=== PATIENT | female | born 1950 | race Caucasian/White ===

== ENCOUNTER 2016-10-16 09:53 | Day surgery (SDC) | payer MEDICARE, OTHER ==
--- NOTE | ~2016-10-16 | EGD ---
EGD REPORT [facility] [address] [place]. [address] NAME: ELLI RODRIGUEZ : [birth year] [place]US : [place] [facility] [place] [id number] AGE: 65 ADM/REG DATE : 10/16/16 MR#: [id number] REPORT SERV DATE: 10/16/16 DICTATED BY: JULIETA BURNETT DATE: 10/16/16 REPORT STATUS : Draft TRANSCRIBED BY: [facility] DATE: 10/16/16 Endoscopy Center Patient Name: Elli Rodriguez Date of : 1950 Attending MD: LISA BURNETT MD Procedure Date No Time: 10/16/2016 Procedure: Upper GI endoscopy Indications: Dysphagia, For therapy of esophageal stenosis Referring MD: NEETU OCASIO MD Medicines: See the Anesthesia note for documentation of the administered medications Complications: No immediate complications. Estimated blood loss: Minimal. Procedure: Pre-Anesthesia Assessment: - ASA Grade Assessment: II - A patient with mild systemic disease. - Prior to the procedure, a History and Physical was performed, and patient medications and allergies were reviewed. The patient's tolerance of previous anesthesia was also reviewed. The risks and benefits of the procedure and the sedation options and risks were discussed with the patient. All questions were answered, and informed consent was obtained. Prior Anticoagulants: The patient has taken no previous anticoagulant or antiplatelet agents. After reviewing the risks and benefits, the patient was deemed in satisfactory condition to undergo the procedure. After obtaining informed consent, the endoscope was passed under direct vision. Throughout the procedure, the patient's blood pressure, pulse, and oxygen saturations were monitored continuously. The GIF H190 [id number] was introduced through the mouth, and advanced to the second part of duodenum. Findings: The examined duodenum was normal. The entire examined stomach was normal. The cardia and gastric fundus were normal on retroflexion. A benign-appearing, intrinsic moderate stenosis was found in the lower third of the esophagus and was traversed. A guidewire was placed and the scope was withdrawn. Dilation was performed with a Savary dilator with no resistance at 42 Fr, mild resistance at 45 Fr and moderate resistance at 48 Fr. Estimated blood loss was minimal. Impression: - Normal examined duodenum. EGD REPORT [address] [address] NAME: ELLI RODRIGUEZ : [birth year] [place] [facility] [id number] AGE: 65 ADM/REG DATE : 10/16/16 MR#: [id number] REPORT SERV DATE: 10/16/16 DICTATED BY: JULIETA BURNETT DATE: 10/16/16 REPORT STATUS : Draft TRANSCRIBED BY: [employer] DATE: 10/16/16 - Normal stomach. - Benign-appearing esophageal stricture. Dilated. Recommendation: - Patient has a contact number available for emergencies. The signs and symptoms of potential delayed complications were discussed with the patient. Return to normal activities tomorrow. Written discharge instructions were provided to the patient. - Regular diet. - Discharge patient to home. - Continue present medications. - Repeat the upper endoscopy PRN for retreatment. Procedure Code(s): --- Professional --- 58842, Esophagogastroduodenoscopy, flexible, transoral; with insertion of guide wire followed by passage of dilator(s) through esophagus over guide wire Diagnosis Code(s): --- Professional --- K22.2, Esophageal obstruction R13.10, Dysphagia, unspecified CPT copyright 2013 [employer]. All rights reserved. The codes documented in this report are preliminary and upon grading supervisor review may be revised to meet current compliance requirements. LISA BURNETT MD 10/16/2016 11:30 AM This report has been signed electronically. Number of Addenda: 0 Note Initiated On: 10/16/2016 11:07 AM Scope Withdrawal Time 0 hours 0 minutes 0 seconds
[~2016-10-16 09:53] MED LIST: AVAPRO300 MG PO; CYANO1000T PO; LEVOTHYROXIN25 MCG PO; MULTIPLE VIT PO; NORV10 PO; NORV5 PO; PREV30 PO; PRILO PO; ZOL50 PO
[2016-12-01] MEDS ORDERED: PREV15 PO (11:21)
[2017-04-29] MEDS ORDERED: T PO (09:44)
== END 2016-10-16 23:59 | disposition home or self-care (01) ==
LOC: DMU 09:53
PROVIDERS: Internal Medicine Gastroenterology
PROC: 0D738ZZ Dilation of Lower Esophagus, Via Natural or Artificial Opening Endoscopic (ICD-10-PCS; principal; 2016-10-16 11:30)
DX: K22.2 Esophageal obstruction (principal); I10 Essential (primary) hypertension; K21.9 Gastro-esophageal reflux disease without esophagitis; M19.90 Unspecified osteoarthritis, unspecified site; Z88.0 Allergy status to penicillin; Z79.899 Other long term (current) drug therapy; Z98.890 Other specified postprocedural states; Z90.49 Acquired absence of other specified parts of digestive tract; Z90.710 Acquired absence of both cervix and uterus; Z96.651 Presence of right artificial knee joint

== ENCOUNTER 2016-12-02 06:18 | Observation (INO) | payer MEDICARE, OTHER ==
[2016-12-01 14:37] LABS: HEMATOCRIT 39.2 % (36.0-48.0)
[2016-12-01 14:52] LABS: BUN (BLOOD UREA NITROGEN) 20 MG/DL (6-23); CHLORIDE, SERUM 105 MMOL/L (96-112); CO2 (CARBON DIOXIDE) 30 MMOL/L (24-34); CREATININE 1.08 MG/DL (0.55-1.02); GFR AFRICAN AMERICAN 62 ML/MIN (>=60); GFR NON AFRICAN AMERICAN 53 ML/MIN (>=60); GLUCOSE, SERUM 97 MG/DL (60-99); SODIUM, SERUM 144 MMOL/L (135-148)
--- NOTE | ~2016-12-02 | PREOPHP ---
PreOp History and Physical [address] [place]. [address] NAME: SAV RODRIGUEZ : [birth year] STATUS : REG [facility]#: [id number] AGE: 65 ADM/REG DATE : 12/02/16 MR#: [id number] REPORT SERV DATE: 12/02/16 DICTATED BY: TREVOR ARAGON DATE: 12/02/16 REPORT STATUS : Draft TRANSCRIBED BY: YOVANI DATE: 12/02/16 CHIEF COMPLAINT: Neck pain. HISTORY OF PRESENT ILLNESS: The patient is a 65-year-old female with intractable neck pain. She has failed multiple attempts at conservative treatment including physical therapy, steroid injections, traction, medications. She also has worsening signs of cervical myelopathy, and after failing conservative treatment and progressive neurologic decline, the patient elects to proceed with surgical intervention. ALLERGIES: TO PENICILLIN. HOME MEDICATIONS: 1. Amlodipine. 2. Methocarbamol. 3. Mobic. 4. Prilosec. 5. Tramadol. FAMILY HISTORY: Noncontributory. PAST MEDICAL HISTORY: Includes hypertension and gastric reflux. PHYSICAL EXAMINATION: VITAL SIGNS: Height 5 feet 6 inches. GENERAL: The patient is healthy appearing, in no acute distress. PSYCH: Alert and oriented x3. Normal mood and affect. Gait is within normal limits. VASCULAR: No extremity swelling. SPINE: Decreased cervical motion. HEART: Regular rate and rhythm. LUNGS: Clear to auscultation. ABDOMEN: Soft, nontender, and nondistended with good bowel sounds. BREASTS: Deferred. RECTAL: Deferred. NEUROLOGIC: Strength in the upper extremities remains intact with 5/5 motor strength diffusely. IMAGING: I have reviewed the MRI scan of the cervical spine. She does have C4 through C7 disk disease and stenosis with nerve root and spinal cord compression. ASSESSMENT: C4 to C7 disk disease and stenosis, early signs of myelopathy, intractable pain, failed conservative treatment. PLAN: The patient presents today for surgical intervention. Consent was obtained. All questions answered. She is ready to proceed with surgery. PreOp History and Physical [address] [address] NAME: SAV RODRIGUEZ : [birth year] STATUS : REG [facility] [place] PAT#: [id number] AGE: 65 ADM/REG DATE : 12/02/16 MR#: [id number] REPORT SERV DATE: 12/02/16 DICTATED BY: TREVOR ARAGON DATE: 12/02/16 REPORT STATUS : Draft TRANSCRIBED BY: YOVANI DATE: 12/02/16 CAMILO/YOVANI Trevor Aragon DO / [id number] CC: DO Caitlyn Tobias M.D.
--- NOTE | ~2016-12-02 | CN ---
Consultation Report [address] [place]. [address] NAME: SAV RODRIGUEZ : [birth year] STATUS : ADM IN PAT#: [id number] AGE: 65 ADM/REG DATE : 12/02/16 MR#: [id number] REPORT SERV DATE: 12/02/16 DICTATED BY: THALIA LOVELL DATE: 12/02/16 REPORT STATUS : Draft TRANSCRIBED BY: MODL DATE: 12/02/16 DATE OF CONSULTATION: 12/02/2016 REASON FOR CONSULT: Hypertension management. HISTORY OF PRESENT ILLNESS: This patient is a 65-year-old female who underwent a C4 through C7 anterior cervical diskectomy and fusion with Dr. Navarro on 12/02/2016. The patient does present with a history of hypertension and gastroesophageal reflux disease. The patient has been admitted for observation following her procedure. REVIEW OF SYSTEMS: The patient states having numbness and tingling of bilateral upper extremities. She states the pain is under control at this time. She denies numbness and tingling and pain in the lower extremities. She denies fever, chills, headache, shortness of breath, or chest pain. PAST MEDICAL HISTORY: 1. Hypertension. 2. Gastroesophageal reflux disease. 3. Chronic neck pain. 4. Kidney stones. 5. Obesity. PAST SURGICAL HISTORY: 1. Cholecystectomy. 2. Right total knee arthroscopy. 3. Hysterectomy. 4. Hernia repair. 5. Bilateral carpal tunnel release. 6. EGD/colonoscopy. ALLERGIES: PENICILLIN CAUSES RASH. HOME MEDICATIONS: 1. Norvasc. 2. Methocarbamol. 3. Mobic. 4. Prilosec. 5. Tramadol. PHYSICAL EXAMINATION: VITAL SIGNS: O2 sats 93% on room air, pulse is 91, respirations are 15, and blood pressure is 122/69. GENERAL: The patient is alert and oriented, in no acute distress. HEENT: Mucous membranes are moist. Oropharynx is clear. Consultation Report [address] [place] [place]. [address] NAME: SAV RODRIGUEZ : [birth year] STATUS : ADM IN PAT#: [id number] AGE: 65 ADM/REG DATE : 12/02/16 MR#: [id number] REPORT SERV DATE: 12/02/16 DICTATED BY: THALIA LOVELL DATE: 12/02/16 REPORT STATUS : Draft TRANSCRIBED BY: YOVANI DATE: 12/02/16 LUNGS: Clear bilateral. No wheezes, rales, or rhonchi. CARDIOVASCULAR: Regular rate and rhythm. No murmurs, rubs, or gallops. ABDOMEN: Soft, nontender. Bowel sounds are active. EXTREMITIES: No cyanosis, no edema. NEUROLOGICAL: Strength is equal in upper and lower. LABORATORY DATA: Hemoglobin 13.0, hematocrit 39.2, sodium 144, potassium is 4.0, chloride is 105, carbon dioxide is 30, BUN is 20, creatinine is 1.08, glucose is 97, and calcium is 9.0. PLAN OF CARE: 1. Hypertension. The patient does present with a history of hypertension. Blood pressure at this time is 122/69. The patient takes Norvasc 10 mg one every day. We will continue home medication. Continue to monitor. 2. Gastroesophageal reflux disease. The patient does state that she does have history of reflux. The patient does take Prevacid 50 mg one every day, and we will continue during her hospital stay. 3. Status post C4 through C7 anterior cervical diskectomy and fusion by Dr. Navarro on 12/02/2016. Plan of care will be per Dr. Navarro. We will continue to monitor. 4. We will continue to monitor patient during her hospital stay. We appreciate the consultation. [facility]/YOVANI Thalia Lovell NP / [id number] CC: Trevor Navarro DO
--- NOTE | ~2016-12-02 | OP ---
Record Of Operation [facility] [address] [place]. 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 POSTOPERATIVE DIAGNOSIS: C4 through C7 disk disease and stenosis with progressive cervical spondylotic myelopathy. PROCEDURE: C4-5, C5-6, C6-7 anterior cervical diskectomy and fusion. Placement of Medtronic PEEK interbody spacer C4-5, C5-6, C6-7. Anterior cervical plate from Medtronic C4 through C7. Allograft bone matrix, neuromonitoring, operative microscope, and difficulty modify her due to the patient's morbid obesity and extreme depth of her neck, multiple additional trays of instruments were utilized and significant extra time in positioning the patient, took at least 50% longer than the normal case. The patient's height is 5 feet 6 inches and weight was approximately 300 pounds. SURGEON: Trevor Aragon DO. ANESTHESIA: General. ESTIMATED BLOOD LOSS: 30 mL. COMPLICATIONS: None. INDICATIONS: The patient is a 65-year-old, with intractable neck pain, progressive signs of myelopathy, failed conservative treatment, and after progressive neurologic decline, elected to proceed with surgery. PROCEDURE IN DETAIL: I identified the patient in the holding area. Consent was obtained. Went to the operating room. Underwent general anesthesia with endotracheal intubation. Prepped and draped in the usual sterile fashion. Operative safety pause was performed. Then we proceeded with surgery. An oblique incision was made over the left side of neck taking down the platysma down to the anterior aspect of the spine. Longus colli elevated C4 C7. Self-retaining retractors were placed. Latham pin was placed and lateral fluoroscopic image used to verify operative level. Latham pins were then placed at C4 and C5. Distraction applied. Operative microscope was brought in. Knife was used to perform an annulotomy. Free disk material removed with pituitary. Anterior osteophytes were removed with Kerrison. Posterior osteophytes and uncinate processes taken down with a constance bur. Foraminotomies performed with a Kerrison. Endplates were prepared with curettes, rasp, and a cutting bur. Trial spacers implanted, then Medtronic PEEK interbody spacer with allograft bone matrix placed at C4-C5. This was repeated at C5-6 and C6-C7. Latham pins were removed. Anterior cervical plate from Medtronic, placed C4-C7. Screws were placed, final tightened. Locking mechanisms engaged. Irrigation performed. Hemostasis achieved. Final AP and lateral images obtained. Subplatysmal drain placed. Layered closure performed. Sterile dressings applied. The patient awoke and extubated and taken to recovery room in Record Of Operation [address] [address] NAME: SAV RODRIGUEZ : [birth year] STATUS : ADM IN PAT#: [id number] AGE: 65 ADM/REG DATE : 12/02/16 MR#: [id number] REPORT SERV DATE: 12/02/16 DICTATED BY: TREVOR ARAGON DATE: 12/02/16 REPORT STATUS : Draft TRANSCRIBED BY: MODL DATE: 12/02/16 stable condition. OPERATIVE FINDING: C4-7 disk disease and stenosis. No sustained neuromonitoring alerts. CAMILO/YOVANI Trevor Aragon DO / [id number] CC: Trevor Aragon DO
[~2016-12-02 06:18] MED LIST changes: +PREV15 PO
[2016-12-03 05:21] LABS: CALCIUM, SERUM 8.8 MG/DL (8.5-10.4); CHLORIDE, SERUM 105 MMOL/L (96-112); CO2 (CARBON DIOXIDE) 29 MMOL/L (24-34); CREATININE 0.94 MG/DL (0.55-1.02); GFR AFRICAN AMERICAN 73 ML/MIN (>=60); GFR NON AFRICAN AMERICAN 63 ML/MIN (>=60); POTASSIUM, SERUM 4.4 MMOL/L (3.5-5.3); SODIUM, SERUM 142 MMOL/L (135-148)
[2016-12-03 05:22] LABS: BUN (BLOOD UREA NITROGEN) 14 MG/DL (6-23); GLUCOSE, SERUM 161 MG/DL (60-99)
[2016-12-04] MEDS ORDERED: FLEX PO (14:34)
[2016-12-04] MEDS ORDERED: PCET PO (14:34)
[2017-04-29] MEDS ORDERED: T PO (09:44)
== END 2016-12-04 17:14 | disposition home or self-care (01) ==
LOC: SDC 06:18 → SDC/OF 12:27 → 3SO 13:46
PROVIDERS: Orthopaedic Surgery
PROC: 0RG20K0 Fusion of 2 or more Cervical Vertebral Joints with Nonautologous Tissue Substitute, Anterior Approach, Anterior Column, Open Approach (ICD-10-PCS; 2016-12-02)
PROC: 0RB30ZZ Excision of Cervical Vertebral Disc, Open Approach (ICD-10-PCS; principal; 2016-12-02 08:15)
PROC: 0RG20A0 Fusion of 2 or more Cervical Vertebral Joints with Interbody Fusion Device, Anterior Approach, Anterior Column, Open Approach (ICD-10-PCS; 2016-12-02 08:15)
DX: G89.29 Other chronic pain (principal); M50.021 Cervical disc disorder at C4-C5 level with myelopathy; M50.022 Cervical disc disorder at C5-C6 level with myelopathy; M50.023 Cervical disc disorder at C6-C7 level with myelopathy; M43.02 Spondylolysis, cervical region; M48.02 Spinal stenosis, cervical region; M47.12 Other spondylosis with myelopathy, cervical region; I10 Essential (primary) hypertension; N20.0 Calculus of kidney; K21.9 Gastro-esophageal reflux disease without esophagitis; E66.9 Obesity, unspecified; Z68.41 Body mass index [BMI] 40.0-44.9, adult; Z90.49 Acquired absence of other specified parts of digestive tract; Z98.890 Other specified postprocedural states; Z90.710 Acquired absence of both cervix and uterus; Z88.0 Allergy status to penicillin; Z79.899 Other long term (current) drug therapy
CPT/HCPCS: 80048; 82962; 85014; 85018; 87641; 88304; 88311; 93005; 96374; 96376; 97116-GP; 97161-GP; A9270-GY; C1713; G0378; G8978-CK-GP; G8979-CK-GP; G8980-CJ-GP; J0690; J2250; J2270; J2370; J2405; J3010

== ENCOUNTER 2017-04-30 12:00 | Day surgery (SDC) | payer MEDICARE, OTHER ==
[~2017-04-30] VITALS: Ht 172.7 cm; Wt 117.9 kg
--- NOTE | ~2017-04-30 | EGD ---
EGD REPORT [facility] [address] [place] [address] NAME: ELLI RODRIGUEZ : 46 STATUS : REG [facility]#: [id number] AGE: 66 ADM/REG DATE : 04/30/17 MR#: [id number] REPORT SERV DATE: 04/30/17 DICTATED BY: JULIETA BURNETT DATE: 04/30/17 REPORT STATUS : Draft TRANSCRIBED BY: [facility] DATE: 04/30/17 Endoscopy Center Patient Name: Elli Rodriguez Date of : 1950 Attending MD: LISA BURNETT MD Procedure Date No Time: 04/30/2017 Procedure: Colonoscopy Indications: High risk colon cancer surveillance: Personal history of colonic polyps, Last colonoscopy: February 2014 Referring MD: NEETU OCASIO MD Medicines: See the Anesthesia note for documentation of the administered medications Complications: No immediate complications. Estimated blood loss: None. Procedure: Pre-Anesthesia Assessment: - ASA Grade Assessment: II - A patient with mild systemic disease. - Prior to the procedure, a History and Physical was performed, and patient medications and allergies were reviewed. The patient's tolerance of previous anesthesia was also reviewed. The risks and benefits of the procedure and the sedation options and risks were discussed with the patient. All questions were answered, and informed consent was obtained. Prior Anticoagulants: The patient has taken no previous anticoagulant or antiplatelet agents. After reviewing the risks and benefits, the patient was deemed in satisfactory condition to undergo the procedure. After I obtained informed consent, the scope was passed under direct vision. Throughout the procedure, the patient's blood pressure, pulse, and oxygen saturations were monitored continuously. The PCF [id number] was introduced through the anus and advanced to the cecum, identified by appendiceal orifice and ileocecal valve. The ileocecal valve, appendiceal orifice and rectum were photographed. The entire colon was examined. The colonoscopy was performed without difficulty. The patient tolerated the procedure well. The quality of the bowel preparation was adequate. Findings: The perianal and digital rectal examinations were normal. A sessile polyp was found at the hepatic flexure. The polyp was 4 mm in size. The polyp was removed with a cold biopsy forceps. Resection and retrieval were complete. A few medium-mouthed diverticula were found in the entire colon. EGD REPORT [address] [place]. [address] NAME: ELLI RODRIGUEZ : [birth year] STATUS : REG [facility]#: [id number] AGE: 66 ADM/REG DATE : 04/30/17 MR#: [id number] REPORT SERV DATE: 04/30/17 DICTATED BY: JULIETA BURNETT DATE: 04/30/17 REPORT STATUS : Draft TRANSCRIBED BY: [employer] DATE: 04/30/17 Non-bleeding internal hemorrhoids were found during retroflexion and were Grade I (internal hemorrhoids that do not prolapse). No other significant abnormalities were identified in a careful examination of the remainder of the colon. Impression: - One 4 mm polyp at the hepatic flexure. Resected and retrieved. - Diverticulosis in the entire examined colon. - Non-bleeding internal hemorrhoids. Recommendation: - Patient has a contact number available for emergencies. The signs and symptoms of potential delayed complications were discussed with the patient. Return to normal activities tomorrow. Written discharge instructions were provided to the patient. - High fiber diet indefinitely. - Discharge patient to home. - Continue present medications. - Await pathology results. - Repeat colonoscopy in 5 years for surveillance. Procedure Code(s): --- Professional --- 11615, Colonoscopy, flexible, proximal to splenic flexure; with biopsy, single or multiple Diagnosis Code(s): --- Professional --- D12.3, Benign neoplasm of transverse colon K64.0, First degree hemorrhoids K57.30, Diverticulosis of large intestine without perforation or abscess without bleeding Z86.010, Personal history of colonic polyps CPT copyright 2013 [place]. All rights reserved. The codes documented in this report are preliminary and upon environmental science program director review may be revised to meet current compliance requirements. LISA BURNETT MD 04/30/2017 2:07 PM This report has been signed electronically. Number of Addenda: 0 Note Initiated On: 04/30/2017 1:27 PM Scope Withdrawal Time 0 hours 9 minutes 53 seconds EGD REPORT [facility] [address] [address] NAME: ELLI RODRIGUEZ : [birth year] STATUS : REG [facility] [place] PAT#: [id number] AGE: 66 ADM/REG DATE : 04/30/17 MR#: [id number] REPORT SERV DATE: 04/30/17 DICTATED BY: JULIETA BURNETT DATE: 04/30/17 REPORT STATUS : Draft TRANSCRIBED BY: [employer] DATE: 04/30/17 [place] [address]
--- NOTE | ~2017-04-30 | EGD ---
EGD REPORT [facility] [address] [address] NAME: ELLI RODRIGUEZ : 46 STATUS : REG [facility] [place] PAT#: [id number] AGE: 66 ADM/REG DATE : 04/30/17 MR#: [id number] REPORT SERV DATE: 04/30/17 DICTATED BY: JULIETA BURNETT DATE: 04/30/17 REPORT STATUS : Draft TRANSCRIBED BY: [facility] DATE: 04/30/17 Endoscopy Center Patient Name: Elli Rodriguez Date of : 1950 Attending MD: LISA BURNETT MD Procedure Date No Time: 04/30/2017 Procedure: Upper GI endoscopy Indications: Dysphagia Referring MD: NEETU OCASIO MD Medicines: See the Anesthesia note for documentation of the administered medications Complications: No immediate complications. Estimated blood loss: Minimal. Procedure: Pre-Anesthesia Assessment: - ASA Grade Assessment: II - A patient with mild systemic disease. - Prior to the procedure, a History and Physical was performed, and patient medications and allergies were reviewed. The patient's tolerance of previous anesthesia was also reviewed. The risks and benefits of the procedure and the sedation options and risks were discussed with the patient. All questions were answered, and informed consent was obtained. Prior Anticoagulants: The patient has taken no previous anticoagulant or antiplatelet agents. After reviewing the risks and benefits, the patient was deemed in satisfactory condition to undergo the procedure. After obtaining informed consent, the endoscope was passed under direct vision. Throughout the procedure, the patient's blood pressure, pulse, and oxygen saturations were monitored continuously. The GIF H190 [id number] was introduced through the mouth, and advanced to the second part of duodenum. The upper GI endoscopy was accomplished without difficulty. The patient tolerated the procedure well. Findings: The examined duodenum was normal. The entire examined stomach was normal. The cardia and gastric fundus were normal on retroflexion. A benign-appearing, intrinsic moderate stenosis was found in the lower third of the esophagus and was traversed. A guidewire was placed and the scope was withdrawn. Dilation was performed with a Savary dilator with mild resistance at 45 Fr and moderate resistance at 48 Fr. Estimated blood loss was minimal. EGD REPORT [address] [address] NAME: ELLI RODRIGUEZ : [birth year] STATUS : REG [facility]#: [id number] AGE: 66 ADM/REG DATE : 04/30/17 MR#: [id number] REPORT SERV DATE: 04/30/17 DICTATED BY: JULIETA BURNETT DATE: 04/30/17 REPORT STATUS : Draft TRANSCRIBED BY: [employer] DATE: 04/30/17 Impression: - Normal examined duodenum. - Normal stomach. - Benign-appearing esophageal stricture. Dilated. Recommendation: - Patient has a contact number available for emergencies. The signs and symptoms of potential delayed complications were discussed with the patient. Return to normal activities tomorrow. Written discharge instructions were provided to the patient. - Regular diet. - Discharge patient to home. - Continue present medications. Procedure Code(s): --- Professional --- 66601, Esophagogastroduodenoscopy, flexible, transoral; with insertion of guide wire followed by passage of dilator(s) through esophagus over guide wire Diagnosis Code(s): --- Professional --- K22.2, Esophageal obstruction R13.10, Dysphagia, unspecified CPT copyright 2013 [employer]. All rights reserved. The codes documented in this report are preliminary and upon wallpaper hanger review may be revised to meet current compliance requirements. LISA BURNETT MD 04/30/2017 1:48 PM This report has been signed electronically. Number of Addenda: 0 Note Initiated On: 04/30/2017 1:33 PM Scope Withdrawal Time 0 hours 0 minutes 0 seconds [id number] [place] [address]
[~2017-04-30 12:00] MED LIST changes: +FLEX PO; +PCET PO; +T PO
== END 2017-04-30 23:59 | disposition home health service (06) ==
LOC: DMU 12:00
PROVIDERS: Internal Medicine Gastroenterology
PROC: 0D758ZZ Dilation of Esophagus, Via Natural or Artificial Opening Endoscopic (ICD-10-PCS; principal; 2017-04-30 13:30)
PROC: 0DBK8ZX Excision of Ascending Colon, Via Natural or Artificial Opening Endoscopic, Diagnostic (ICD-10-PCS; 2017-04-30 13:30)
DX: Z12.11 Encounter for screening for malignant neoplasm of colon (principal); D12.3 Benign neoplasm of transverse colon; K22.2 Esophageal obstruction; K57.30 Diverticulosis of large intestine without perforation or abscess without bleeding; K64.0 First degree hemorrhoids; I10 Essential (primary) hypertension; M19.90 Unspecified osteoarthritis, unspecified site; Z98.1 Arthrodesis status; Z86.010 Personal history of colon polyps; Z85.820 Personal history of malignant melanoma of skin; Z88.0 Allergy status to penicillin; Z79.899 Other long term (current) drug therapy; Z90.710 Acquired absence of both cervix and uterus; Z96.651 Presence of right artificial knee joint; Z98.890 Other specified postprocedural states
CPT/HCPCS: 88305